=== PATIENT | male | born 1970 | race Caucasian/White ===

== ENCOUNTER → 2021-07-30 | Emergency (ER) | payer OTHER ==
[~2021-07-30] VITALS: Ht 182.9 cm; Wt 83.1 kg
[~2021-07-30] MED LIST: ACET500T68 PO; BACI1PAC16 TP; IBUP400T18 PO; IBUPROFEN 600 MG TABLET. PO ONE
--- NOTE | 2021-07-30 18:54 | PHYS DOC ---
General Adult HPI: HPI: ".. The door slammed shut on my middle finger.. I thought I could tuff it out.. but it is hurting... 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 finger injury. Patient has obvious swelling and nail hematoma. Has distal sensory. As range of motion but is painful. Patient is right-hand dominant. Patient normally healthy. Up-to-date with vaccinations. No recent travel. No history immunosuppression. Review of Systems: Review of Systems: Constitutional: Denies fever or chills Eyes: Denies change in visual acuity HENT: Denies nasal congestion or sore throat Respiratory: Denies cough or shortness of breath Cardiovascular: Denies chest pain or edema GI: Denies abdominal pain, nausea, vomiting, bloody stools or diarrhea : Denies dysuria Musculoskeletal: Complains of crush injury right third finger Integument: Denies rash Neurologic: Denies headache, focal weakness or sensory changes Endocrine: Denies polyuria or polydipsia Lymphatic: Denies swollen glands Psychiatric: Denies depression or anxiety Family History: Family History: Noncontributory presentation Current Medications: Current Meds: See nursing for home meds Allergies: Allergies: No known drug allergies Physical Exam: PE: Constitutional: Well developed, well nourished, moderate acute distress, non-toxic appearance. [] HENT: Normocephalic, atraumatic, bilateral external ears normal, oropharynx moist, no oral exudates, nose normal. [] Eyes: PERRLA, EOMI, conjunctiva normal, no discharge. [] Neck: Normal range of motion, no tenderness, supple, no stridor. [] Cardiovascular:Heart rate regular rhythm, no murmur [] Lungs & Thorax: Bilateral breath sounds clear to auscultation [] Abdomen: Bowel sounds normal, soft, no tenderness, no masses, no pulsatile masses. [] Skin: Warm, dry, no erythema, no rash. [] Back: No tenderness, no CVA tenderness. [] Extremities: No tenderness, no cyanosis, no clubbing, ROM intact, no edema. [] Crush injury right third finger as per HPI Neurologic: Alert and oriented X 3, normal motor function, normal sensory function, no focal deficits noted. [] Psychologic: Affect normal, judgement normal, mood normal. [] EKG: EKG: [] Radiology/Procedures: Radiology/Procedures: [][place] [address] IMAGING REPORT Signed PATIENT: BRINA DIALLO ACCOUNT: [id number] : 1970 LOCATION: ER AGE: 51 SEX: M EXAM STATUS: REG ER ORD. PHYSICIAN: MARLENE STINSON MD REASON: crush injury Rt. middle finger- fire door shut on it PROCEDURE: HAND RIGHT 3V INDICATION: Reason: crush injury Rt. middle finger- fire door shut on it / Spl. Instructions: / History: COMPARISON: None. IMPRESSION: Right hand: 3 views obtained. There is a tiny high-density structure seen adjacent to the third distal phalanx. Could be from a small calcification in the soft tissues or a tiny fracture fragment. No evidence of dislocation. Electronically signed by: Cesar Vega MD (07/30/2021 7:19 PM) [id number] DICTATED AND SIGNED BY: CESAR VEGA MD DATE: 07/30/211914 CC: MARLENE STINSON MD; PCP,UNKNOWN ~ Heart Score: C/O Chest Pain: N/A Risk Factors: Risk Factors: DM, Current or recent (<one month) smoker, HTN, HLP, family history of CAD, obesity. Risk Scores: Score 0 - 3: 2.5% MACE over next 6 weeks - Discharge Home Score 4 - 6: 20.3% MACE over next 6 weeks - Admit for Clinical Observation Score 7 - 10: 72.7% MACE over next 6 weeks - Early Invasive Strategies Course & Med Decision Making: Course & Med Decision Making Pertinent Labs and Imaging studies reviewed. (See chart for details) Procedure [id number] of 18-gauge needle blunted-and heated. Drained hematoma by nail puncture. Patient to apply Polysporin 4 times a day. After day 3 he may use moist soaks with salt water or Epson salts 4 times a day. Keep covered with Band-Aid and Polysporin until adequate healing. Monitor for infection. Take Keflex 500 mg 3 times a day. Follow-up primary care. Return if any concerns. Pt.reports markedly less pain after drainage of hematoma. Pt.declined splint at this time. Impression: 1. Right third finger crush injury-nondisplaced fracture 2. Right third finger nail hematoma [] Dragon Disclaimer: Dragon Disclaimer: This electronic medical record was generated, in whole or in part, using a voice recognition dictation system. Departure Departure: Referrals: PCP,UNKNOWN (PCP) Scripts Ibuprofen (IBUPROFEN) 400 Mg Tablet 600 MG PO QIDPRN PRN for PAIN, #120 TAB Prov: MARLENE STINSON MD 07/30/21 Bacitracin/Polymyxin B Sulfate (Polysporin Ointment) 1 Each Packet 1 EACH TP QID for wound, #120 PKT Prov: MARLENE STINSON MD 07/30/21 Acetaminophen (ACETAMINOPHEN) 500 Mg Tablet 1000 MG PO QIDPRN PRN for PAIN, #120 TAB Prov: MARLENE STINSON MD 07/30/21 Dragon Disclaimer This chart was dictated in whole or in part using Voice Recognition software in a busy, high-work load, and often noisy Emergency Department environment. It may contain unintended and wholly unrecognized errors or omissions. MARLENE STINSON MD Jul 30, 2021 18:54
[2021-07-30 19:05] VITALS: BP 122/80
--- NOTE | 2021-07-30 19:21 | RAD ---
INDICATION: Reason: crush injury Rt. middle finger- fire door shut on it / Spl. Instructions: / Hist ory: COMPARISON: None. IMPRESSION: Right hand: 3 views obtained. There is a tiny high-density structure seen adjacent to the third dista l phalanx. Could be from a small calcification in the soft tissues or a tiny fracture fragment. No ev idence of dislocation. Electronically signed by: Thierno Vega MD (07/30/2021 7:19 PM) [id number]
== END | disposition home or self-care (01) ==
LOC: ER 18:50
DX: S62.662A Nondisplaced fracture of distal phalanx of right middle finger, initial encounter for closed fracture (principal); S60.131A Contusion of right middle finger with damage to nail, initial encounter; W23.0XXA Caught, crushed, jammed, or pinched between moving objects, initial encounter; Y93.89 Activity, other specified; Y92.89 Other specified places as the place of occurrence of the external cause; Y99.8 Other external cause status
CPT/HCPCS: 11740; 73130; 99284